=== PATIENT | male | born 1995 | race Caucasian/White ===

== ENCOUNTER 2024-11-12 16:13 | Outpatient (CLI) | payer OTHER, SELFPAY | END 2024-11-12 16:14 | disposition home or self-care (01) | PROVIDERS: PCP Family Medicine; Visit Provider Family Medicine | DX: Z00.01 Encounter for general adult medical examination with abnormal findings (principal); R94.5 Abnormal results of liver function studies; Z13.21 Encounter for screening for nutritional disorder | CPT/HCPCS: 80053; 80061; 82306 ==

== ENCOUNTER 2024-12-16 12:56 | Outpatient (CLI) | payer OTHER, SELFPAY | END 2024-12-16 12:57 | disposition home or self-care (01) | PROVIDERS: PCP Family Medicine; Visit Provider Family Medicine | DX: R79.89 Other specified abnormal findings of blood chemistry (principal) | CPT/HCPCS: 80076; 82728 ==

== ENCOUNTER 2024-12-23 16:17 | Outpatient (CLI) | payer OTHER, SELFPAY ==
--- NOTE | 2024-12-23 16:45 | CRLHL7_ITS ---
For Patients: As a result of the Century Cures Act, medical imaging exams and procedure reports are released immediately into your electronic medical record. You may view this report before your referring provider. If you have questions, please contact your health care provider. INDICATION: Left testicular lump COMPARISON: none TECHNIQUE: Rowley scale imaging was performed of the scrotum. In addition color Doppler and spectral Doppler analysis was performed of the testes. FINDINGS: The testes demonstrate normal arterial and venous blood flow on color Doppler and spectral Doppler analysis. The testes have uniform echogenicity with no evidence of a suspicious mass or area of inflammation. The right testis measures 4.6 x 2.4 x 3.0 cm in size and the left testis measures 4.8 x 2.6 x 2.8 cm. The epididymis appears normal bilaterally. Left varicocele. No hydrocele. IMPRESSION: Left varicocele. Normal testicles. Dictated by Joe Tony MD @ 12/24/2024 11:05:07 AM (Electronically Signed)
--- NOTE | 2024-12-23 17:30 | CRLHL7_ITS ---
For Patients: As a result of the Century Cures Act, medical imaging exams and procedure reports are released immediately into your electronic medical record. You may view this report before your referring provider. If you have questions, please contact your health care provider. INDICATION: Elevated liver test COMPARISON: none TECHNIQUE: Real time fontana scale imaging and color Doppler analysis was performed of the right upper quadrant. FINDINGS: The patient`s liver is of normal size and has uniform echogenicity. There is a normal appearance of the hepatic IVC and proximal abdominal aorta. There is no evidence of ascites. The gallbladder is of normal size and there is no evidence of intraluminal stones or sludge. The gallbladder wall measures 2 mm in thickness. The common bile duct is of normal size and measures 2 mm in diameter at the level of the landy hepatis. The pancreas appears normal. There is no evidence of a stone or hydronephrosis within the right kidney. The right kidney measures 12.8 cm in length. IMPRESSION: Normal right upper quadrant ultrasound. Dictated by Joe Tony MD @ 12/24/2024 10:53:17 AM (Electronically Signed)
== END 2024-12-23 16:18 | disposition home or self-care (01) ==
LOC: US 16:18
PROVIDERS: PCP Family Medicine; Visit Provider Family Medicine
DX: R79.89 Other specified abnormal findings of blood chemistry (principal); N50.89 Other specified disorders of the male genital organs; I86.1 Scrotal varices
CPT/HCPCS: 76705; 76870; 93976